=== PATIENT | male | born 1970 | race Caucasian/White ===

== ENCOUNTER 2016-12-06 07:28 | Emergency (ER) | payer SELFPAY ==
[2016-12-06 07:37] VITALS: BP 169/100
[2016-12-06] MEDS ORDERED: ULTRAM PO ONE (10:59)
--- NOTE | 2016-12-06 13:03 | Emergency Department Report ---
Entered by CARLOTA WEST, acting as scribe for SUGEY BHAKTA PA. Earache (Pediatric) - HPI Chief Complaint: Earache Stated Complaint: RT EAR PAIN Time Seen by Provider: 12/06/16 10:47 Duration: 3 Days Location: Right Severity: Moderate Symptoms: No URI, No Sore Throat, No Trauma to EAC, No History of Moisture in Ear, No Fever, No Vomiting, No Cough, No Shortness of Breath Other History: 46 year old male with PMHx of HTN presents to the ED with c/o right earache for 3 days. Patient reports describes pain as aching, but states unknown causes to symptoms. Patient reports ear drainage, itching, and mild swelling, but denies fever, cough, trauma/injury, fever, nausea, vomiting, chills, and sore throat. NKDA. ED Review of Systems ROS: Stated complaint: RT EAR PAIN Other details as noted in HPI Comment: All other systems reviewed and negative Constitutional: denies: chills, fever Eyes: denies: eye pain, eye discharge, vision change ENT: ear pain (right sided ear pain). denies: throat pain, hearing loss Respiratory: denies: cough, shortness of breath, wheezing Cardiovascular: denies: chest pain, palpitations Endocrine: denies: excessive sweating Gastrointestinal: denies: abdominal pain, nausea, vomiting, diarrhea Genitourinary: denies: urgency, dysuria Musculoskeletal: denies: back pain, joint swelling, arthralgia Skin: denies: rash, lesions Neurological: denies: headache, weakness, numbness, paresthesias, confusion, abnormal gait, vertigo Psychiatric: denies: anxiety, depression Hematological/Lymphatic: denies: easy bleeding Pediatric Past Medical History - Surgeries & Procedures Additional Surgical History: Jaw surgery - Chronic Health Problems Additional medical history: Broken jaw Peds Earache exam - Exam General: Vital signs noted. No distress. Alert and acting appropriately. HEENT: No Pharyngeal Erythema, No Pharyngeal Exudates, No Moist Mucous Membranes , No Rhinorrhea, No Conjuctival Injection, No Frontal Tenderness, No Maxillary Tenderness Ear: Right EAC Pain (mild erythema to right external ear canal), Right EAC Discharge (watery and white), Neither TM Bulge (none), Neither TM Erythema (none ), Neither Cerumen Impaction (none) Peds Neck exam: Adenopathy: No, Supple: Yes Peds Lung exam: Good Air Exchange: Yes, Wheezes: No, Stridor: No, Cough: No, Nasal Flaring: No, Retractions: No, Use of Accessory Muscles: No Heart: Yes Regular, No Murmur Peds abdomen: Abdominal Tenderness: No, Peritoneal Signs: No, Normal Bowel Sounds: Yes, Distention: No Peds Skin Exam: Rash: No, Eczema: No Neurologic: Alert and oriented, no deficits. Musculoskeletal: Unremarkable. ED Course Vital Signs 12/06/16 07:33 Temperature 98 F Pulse Rate 73 Respiratory 18 Rate Blood Pressure 169/100 O2 Sat by Pulse 97 Oximetry ED Medical Decision Making - Medical Decision Making 46 year old male presents to ED with right sided ear pain. patient will be treated for otitis externa. patient is stable, neurologically intact and in no acute distress. patient has no sign of TM perforation today on exam. Critical care attestation.: If time is entered above; I have spent that time in minutes in the direct care of this critically ill patient, excluding procedure time. ED Disposition Clinical Impression: Otitis externa Qualifiers: Otitis externa type: unspecified type Chronicity: acute Laterality: right Qualified Code(s): H60.501 - Unspecified acute noninfective otitis externa, right ear Disposition: - TO HOME OR SELFCARE Is pt being admited?: No Does the pt Need Aspirin: No Condition: Stable Instructions: Otitis Externa (ED) Prescriptions: Neomy/Polymyx B/Hc Otic Susp [Cortisporin (Otic) Susp] 3 drops AD TID #1 bottle Referrals: PRIMARY CARE, [Primary Care Provider] - 3-5 Days This documentation as recorded by the JENNA odom PEARL,accurately reflects the service I personally performed and the decisions made by ,SUGEY BHAKTA PA.
== END 2016-12-06 11:29 | disposition home or self-care (01) ==
LOC: ED 07:28
DX: H60.501 Unspecified acute noninfective otitis externa, right ear (principal)
CPT/HCPCS: 99282